=== PATIENT | female | born 1995 | race Caucasian/White ===

== ENCOUNTER 2018-03-06 18:29 | Inpatient (IN) | payer MEDICAID ==
--- NOTE | 2018-03-06 21:12 | HP ---
General Information - General Information Maternal Age: 22 Grav: 1 Para: 0 SAB: 0 IEA: 0 Estimated Due Date: 03/01/18 Determined By: 35 week ultrasound Gestational Age in Weeks and Days: 40 Weeks and 5 Days Maternal Blood Type and Rh: B Positive - Results this Serology/RPR Result: Non-Reactive Rubella Result: Immune HBsAg Result: Negative HIV Result: Negative GBS Culture Result: Negative Past Medical History Pertinent Past Medical History: See Records - Late transfer of care from [place], appropriate care. Prodromal labor x 36 hours. Discharged home this am to await active labor. Pertinent Past Surgical History: None Pertinent Family History: Non-Contributory - Antepartal Records Antepartal Records: Reviewed, Uncomplicated Review of Systems Constitutional: Uncomfortable CV Complaint: No Respiratory: Shortness of Breath: No Gastrointestinal: No Nausea/Vomiting, Normal Bowel Movement Genitourinary: No Bleeding, No Leaking Fluid Musculoskeletal: Contractions Neurological: No Headache, No Visual Changes Movement: Normal Exam Allergies/Adverse Reactions: Allergies No Known Allergies Allergy (Verified 03/06/18 20:34) Vital Signs 03/06/18 03/06/18 19:12 20:18 Temperature 97.2 F 97.2 F Pulse Rate 83 83 Respiratory 20 20 Rate Blood Pressure 128/81 128/81 (mmHg) O2 Sat by Pulse 100 100 Oximetry - Measurements Height: 5 ft 6 in Weight: 176 lb Weight in lbs: 176 Body Mass Index (BMI): 28.4 Pre- Weight: 141 lb 1.533 oz Weight Gained This : 34.904 lbs and 0.003 ozs - Exam Abdomen: No Upper Quadrant Pain Breast: Breast Exam Deferred CVA: No CVA Tenderness Extremities: No Edema Heart: Normal Rhythm/Heart Sounds HEENT: No Significant Findings Lungs: Clear Bilaterally Rectal: Rectal Exam Deferred Thyroid: No Thyromegaly - Abdominal Exam Abdomen Exam: Non-Tender, Fundal Height Consistent with Dates Targeted Exam Findings See L&D Outpatient Visit Provider Note for Findings: N/A Estimated Weight: 6.5-7 Cervical Exam: 3cm - by RN Effacement: 90% Station: -1 Presenting Part: Vertex Membrane Status: Bulging EFM Findings - External Monitor Findings Baseline Heart Rate: 150 External Monitor Findings: Accelerations Present, No Pattern of Variable or Late Decelerations, Variability Moderate, Baseline Stable Contractions: Regular, Moderate, 45-90 Seconds Assessment/Plan - Reason for Visit Reason for Visit: Evaluation of labor, possible augmentation for prodromal labor. - Plan Plan: Early Labor - Date/Time of Admission Date of Admission: 03/06/18 Time of Admission: 20:00
[2018-03-06] MEDS ORDERED: Promethazine INJ(RESTRICTED)* 25 MG/ML 1 ML VIAL ONE (23:49)
[2018-03-06] MEDS ORDERED: Nalbuphine* 20 MG/ML 1 ML VIAL ONE (23:49)
[2018-03-07] MEDS ORDERED: OBEPIDURAL* 250 ML EPIDURAL ONE (02:43)
[2018-03-07] MEDS ORDERED: fentaNYL* 50 MCG/ML 2 ML VIAL (100 MCG VIAL) ONE (03:05)
[2018-03-07] MEDS ORDERED: Famotidine TAB* 20 MG PO PRN (03:50)
[2018-03-07] MEDS ORDERED: Hetastarch 6% in NS* 500 ML IV PRN (03:50)
[2018-03-07] MEDS ORDERED: EPHEDrine (Pressors)* 50 MG/ML VIAL IV PUSH PRN ×2 (03:50)
[2018-03-07] MEDS ORDERED: Sodium Citrate/Citric Acid* 15 ML UDC PO PRN (03:50)
[2018-03-07] MEDS ORDERED: Phenylephrine IV* 40 MCG/ML 10 ML SYRINGE IV PUSH PRN ×2 (03:50)
[2018-03-07] MEDS ORDERED: OBEPIDURAL* 250 ML EPIDURAL SCH (04:00)
[2018-03-07] MEDS ORDERED: fentaNYL* 50 MCG/ML 2 ML VIAL (100 MCG VIAL) IV ONE (04:01)
[2018-03-07] MEDS ORDERED: Misoprostol TAB* 200 MCG ONE (06:46)
[2018-03-07] MEDS ORDERED: Acetaminophen TAB* 325 MG PO PRN (07:02)
[2018-03-07] MEDS ORDERED: Dibucaine 1% 28.35 GM TUBE PR PRN (07:02)
[2018-03-07] MEDS ORDERED: Misoprostol TAB* 200 MCG PR ONE (07:02)
[2018-03-07] MEDS ORDERED: Witch Hazel PAD* JAR TOPICAL PRN (07:02)
[2018-03-07] MEDS: Ibuprofen TAB* 600 MG PO PRN ×3 (08:48→21:27)
[2018-03-07] MEDS: Docusate CAP* 100 MG PO SCH ×3 (09:45→21:28)
[2018-03-08] MEDS: Ibuprofen TAB* 600 MG PO PRN ×3 (04:08→19:27)
[2018-03-08 05:35] LABS: ABS Basophils 0.1 10^3/ul (0-0.2); ABS Eosinophils 0.3 10^3/ul (0-0.6); ABS Lymphocytes 3.3 10^3/ul (1.0-4.8); ABS Monocytes 0.8 10^3/ul (0-0.8); ABS Neutrophils 9.1 10^3/ul (1.5-7.7); ABS Nucleated RBC 0 10^3/ul; Eosinophil % 2.4 % (0-6); Hematocrit 33 % (35-47); Hemoglobin 11.9 g/dl (12.0-16.0); Lymphocyte % 24.3 % (25-47); Mean Corpuscular HGB Conc 36 g/dl (31-36); Mean Corpuscular Hemoglobin 29 pg (27-31); Mean Corpuscular Volume 82 fL (80-97); Mean Platelet Volume 8.5 um3 (7.4-10.4); Nucleated Red Blood Cells % 0.1; Platelet Count 188 10^3/ul (150-450); Red Blood Count 4.07 10^6/ul (4.0-5.4); Red Cell Distribution Width 13 % (10.5-15); White Blood Count 13.6 10^3/ul (3.5-10.8)
[2018-03-08] MEDS: Docusate CAP* 100 MG PO SCH ×3 (09:03→19:28)
[2018-03-08] MEDS: Ferrous Gluconate TAB* 324 MG TAB PO SCH ×2 (09:09→19:08)
[2018-03-09] MEDS: Docusate CAP* 100 MG PO SCH (08:57)
[2018-03-09] MEDS: Ibuprofen TAB* 600 MG PO PRN (08:57)
[2018-03-09 09:02] VITALS: BP 106/67
== END 2018-03-09 11:58 | disposition home or self-care (01) | DRG 560 ==
LOC: MCHOBOUT 18:29 → MCHOB 20:19
PROVIDERS: ADMIT Midwife; ATTEND Midwife
PROC: 10907ZC Drainage of Amniotic Fluid, Therapeutic from Products of Conception, Via Natural or Artificial Opening (ICD-10-PCS; principal; 2018-03-06)
PROC: 3E0P7VZ Introduction of Hormone into Female Reproductive, Via Natural or Artificial Opening (ICD-10-PCS; 2018-03-06)
PROC: 4A1HXCZ Monitoring of Products of Conception, Cardiac Rate, External Approach (ICD-10-PCS; 2018-03-06)
PROC: 10E0XZZ Delivery of Products of Conception, External Approach (ICD-10-PCS; 2018-03-07)
PROC: 0KQM0ZZ Repair Perineum Muscle, Open Approach (ICD-10-PCS; 2018-03-07)
DX: O48.0 Post-term pregnancy (principal); O75.89 Other specified complications of labor and delivery; O70.1 Second degree perineal laceration during delivery; Z3A.40 40 weeks gestation of pregnancy; Z37.0 Single live birth
CPT/HCPCS: 36415; 85025; A9270-GY; J2300; J2550; J3010

== ENCOUNTER 2018-05-28 19:47 | Emergency (ER) | payer MEDICAID ==
--- NOTE | 2018-05-28 19:58 | UC ---
General HPI - HPI Summary HPI Summary: Patient's had a positive HIV-1 test last week. Patient is here with for HIV testing. Patient was HIV -5 2018 and 3 months ago gave . She has been breast-feeding. She has had sexual relations with her twice since the infant was born both times he pulled out to ejaculate. She has no medical complaints. - History of Current Complaint Chief Complaint: UCGeneralIllness Stated Complaint: BLOOD TEST Time Seen by Provider: 05/28/18 19:48 Hx Obtained From: Patient Current Severity: None - Allergy/Home Medications Allergies/Adverse Reactions: Allergies Allergy/AdvReac Type Severity Reaction Status Date / Time No Known Allergies Allergy Verified 03/06/18 20:34 PMH/Surg Hx/FS Hx/Imm Hx Previously Healthy: Yes - Family History Known Family History: Positive: None - Social History Occupation: Unemployed Lives: With Family Alcohol Use: None Substance Use Type: None Smoking Status (MU): Never Smoked Tobacco - Immunization History Most Recent Influenza Vaccination: 01/29/2018 Most Recent Pneumonia Vaccination: n/a Review of Systems Constitutional: Negative Skin: Negative Eyes: Negative ENT: Negative Respiratory: Negative Cardiovascular: Negative Gastrointestinal: Negative Genitourinary: Negative Motor: Negative Neurovascular: Negative Musculoskeletal: Negative Neurological: Negative Psychological: Negative Is Patient Immunocompromised?: No All Other Systems Reviewed And Are Negative: Yes Physical Exam Triage Information Reviewed: Yes Appearance: Well-Appearing, No Pain Distress, Well-Nourished Vital Signs Reviewed: Yes Eye Exam: Normal Eyes: Positive: Conjunctiva Clear ENT Exam: Normal ENT: Positive: Normal ENT inspection, Hearing grossly normal. Negative: Trismus , Muffled voice, Hoarse voice Dental Exam: Normal Neck exam: Normal Neck: Positive: Supple, Nontender Respiratory Exam: Normal Respiratory: Positive: Chest non-tender, No respiratory distress, No accessory muscle use Cardiovascular Exam: Normal Cardiovascular: Positive: RRR, Pulses Normal, Brisk Capillary Refill Musculoskeletal Exam: Normal Musculoskeletal: Positive: Strength Intact, ROM Intact, No Edema Neurological Exam: Normal Neurological: Positive: Alert, Muscle Tone Normal Psychological Exam: Normal Skin Exam: Normal Course/Dx - Course Course Of Treatment: Patient understands that she cannot breast-feed her child until all of her labs have been cleared by Dr. Rivas. Patient will be going to pickle maker and Enfamil formula for the infant upon discharge from the urgent care. Patient will be having HIV testing today. Patient understands to avoid sexual contact sexual intercourse until all labs of been cleared by Dr. Rivas - Differential Dx - Multi-Symptom Provider Diagnoses: health education, HIV screening Discharge - Sign-Out/Discharge Documenting (check all that apply): Patient Departure All imaging exams completed and their final reports reviewed: No Studies - Discharge Plan Condition: Stable Disposition: HOME Patient Education Materials: Safe Sex (ED) Referrals: [facility] [Outside] - 4 Days Additional Instructions: NO BREAST FEEDING UNTIL CLEARED BY MEDICAL DOCTOR NO SAVED BREAST MILK---PLEASE CHANGE TO ENFAMIL FORMULA UNTIL LAB RESULTS HAVE RETURNED - Billing Disposition and Condition Condition: STABLE Disposition: Home
== END 2018-05-28 20:20 | disposition home or self-care (01) ==
LOC: UCEAST 19:47
DX: Z11.4 Encounter for screening for human immunodeficiency virus [HIV] (principal); Z20.6 Contact with and (suspected) exposure to human immunodeficiency virus [HIV]
CPT/HCPCS: 36415; 86703; 99211; G0463

== ENCOUNTER 2018-10-25 13:32 | Emergency (ER) | payer SELFPAY ==
[2018-10-25 14:10] VITALS: BP 120/78
[2018-10-25] MEDS ORDERED: Ketorolac INJ* 60 MG/2 ML VIAL IM ONE (14:10)
[2018-10-25] MEDS ORDERED: Amoxicillin/Clavulanate TAB* 875 MG PO ONE (14:10)
--- NOTE | 2018-10-25 14:20 | UC ---
Dental HPI - HPI Summary HPI Summary: Patient is a 23-year-old female who presents to the urgent care with chief complaint of dental pain. The patient reports that the pain started last Thursday and he has been worsening. The patient has been taking ibuprofen or Advil for pain and only works temporarily. The patient denies any tongue swelling, lip swelling or feeling that the throat is closing. The patient has no other complaints. - History of Current Complaint Chief Complaint: UCDentalProblem Stated Complaint: TOOTH ACHE Time Seen by Provider: 10/25/18 13:57 Hx Last Menstrual Period: 10/17/18 Pain Intensity: 8 - Allergies/Home Medications Allergies/Adverse Reactions: Allergies Allergy/AdvReac Type Severity Reaction Status Date / Time No Known Allergies Allergy Verified 10/25/18 14:10 PMH/Surg Hx/FS Hx/Imm Hx Previously Healthy: Yes - Surgical History Surgical History: None - Family History Known Family History: Positive: None - Social History Alcohol Use: None Substance Use Type: None Smoking Status (MU): Never Smoked Tobacco - Immunization History Most Recent Influenza Vaccination: 01/29/2018 Most Recent Pneumonia Vaccination: n/a Review of Systems All Other Systems Reviewed And Are Negative: Yes Constitutional: Positive: Negative Skin: Positive: Negative Eyes: Positive: Negative ENT: Positive: Other - dental pain Respiratory: Positive: Negative Cardiovascular: Positive: Negative Gastrointestinal: Positive: Negative Genitourinary: Positive: Negative Motor: Positive: Negative Neurovascular: Positive: Negative Musculoskeletal: Positive: Negative Neurological: Positive: Negative Psychological: Positive: Negative Is Patient Immunocompromised?: No Physical Exam Vital Signs: Initial Vital Signs Temp 98.1 F 10/25/18 14:07 Pulse 64 10/25/18 14:07 Resp 18 10/25/18 14:07 BP 120/78 10/25/18 14:07 Pulse Ox 100 10/25/18 14:07 Dental Complaint Course/Dx - Course Course Of Treatment: In the urgent care course the patient was given Toradol for the pain and Augmentin. The patient was given a list for dentists in the area. She will also be given a prescription for Augmentin, ibuprofen and [place] for the pain. She was given instructions to return to the urgent care if the symptoms worsen. The patient understands and agrees. - Differential Dx/Diagnosis Differential Diagnosis/Dx: Dental Abscess, Dental Caries, Rajendra's Angina, Peridontic Disease, Tonsillitis Provider Diagnosis: Pain, dental, Dental cavity Discharge - Sign-Out/Discharge Documenting (check all that apply): Patient Departure All imaging exams completed and their final reports reviewed: No - Discharge Plan Condition: Stable Disposition: HOME Prescriptions: Amoxicillin/Clavulanate TAB* [Augmentin TAB 875*] 875 mg PO BID #20 tab HYDROcodone/ACETAMIN 5-325 MG* [[place] 5-325 TAB*] 1 tab PO Q6H PRN #10 tab MDD 4 PRN Reason: Pain Ibuprofen TAB* [Motrin TAB* 600 MG] 600 mg PO Q6H PRN #30 tab PRN Reason: Pain - Mild Patient Education Materials: Acute Dental Trauma (ED) Referrals: No Primary Care Phys,NOPCP [Primary Care Provider] - [facility] [place] [facility] [Outside] Additional Instructions: Take medications as instructed and adhere to plan Take Acetaminophen or ibuprofen for pain or fever Increase your fluid intake Return to the or go to the emergency department if symptoms worsen Follow-up with primary care physician in next 2-3 days - Billing Disposition and Condition Condition: STABLE Disposition: Home
--- NOTE | 2018-10-25 16:43 | UC ---
Course/Dx - Diagnoses Provider Diagnoses: Pain, dental, Dental cavity Discharge - Sign-Out/Discharge Documenting (check all that apply): Post-Discharge Follow Up All imaging exams completed and their final reports reviewed: No Studies - Discharge Plan Condition: Stable Disposition: HOME Prescriptions: Amoxicillin/Clavulanate TAB* [Augmentin TAB 875*] 875 mg PO BID #20 tab HYDROcodone/ACETAMIN 5-325 MG* [[place] 5-325 TAB*] 1 tab PO Q6H PRN #10 tab MDD 4 PRN Reason: Pain Ibuprofen TAB* [Motrin TAB* 600 MG] 600 mg PO Q6H PRN #30 tab PRN Reason: Pain - Mild Patient Education Materials: Acute Dental Trauma (ED) Referrals: [facility] [Outside] No Primary Care Phys,NOPCP [Primary Care Provider] - Additional Instructions: Take medications as instructed and adhere to plan Take Acetaminophen or ibuprofen for pain or fever Increase your fluid intake Return to the or go to the emergency department if symptoms worsen Follow-up with primary care physician in next 2-3 days - Billing Disposition and Condition Condition: STABLE Disposition: Home
== END 2018-10-25 14:35 | disposition home or self-care (01) ==
LOC: UCEAST 13:32
DX: K02.9 Dental caries, unspecified (principal)
CPT/HCPCS: 90472; 99212; A9270-GY; G0463; J1885